=== PATIENT | female | born 1970 | race Caucasian/White ===

== ENCOUNTER 2023-01-30 09:30 | Day surgery (SDC) | payer BC ==
[~2023-01-30] VITALS: Ht 162.6 cm; Wt 95.3 kg
[~2023-01-30 09:30] MED LIST: SERT25TA PO
[2023-01-30] MEDS ORDERED: MIDAZOLAM HCL 2 MG/2 ML VIAL (VERSED) ONE (11:52)
[2023-01-30] MEDS ORDERED: LIDOCAINE/EPI 1% 1:100000 20 ML VIAL ONE (11:52)
[2023-01-30] MEDS ORDERED: NS IRRIG SOLN 1000 ML IR ONE (11:52)
[2023-01-30] MEDS ORDERED: PROPOFOL 200MG/ 20ML VIAL (DIPRIVAN) IV ONE (11:52)
[2023-01-30] MEDS ORDERED: SUGAMMADEX SODIUM 200 MG/2 ML VIAL IV ONE (11:52)
[2023-01-30] MEDS ORDERED: WATER FOR IRRIGATION,STERILE 1,000 ML IRRIG.SOLN IR ONE (11:52)
[2023-01-30] MEDS ORDERED: ROCURONIUM BROMIDE 10 MG/ML (ZEMURON) ONE (11:52)
[2023-01-30] MEDS ORDERED: MUPIROCIN 2% TOPICAL OINTMENT 22 GM ONE (11:52)
[2023-01-30] MEDS ORDERED: LIDOCAINE 2%, 20 ML MDV ONE (11:52)
[2023-01-30] MEDS ORDERED: fentaNYL CITRATE/PF 100 MCG/2 ML AMP ONE (11:52)
[2023-01-30] MEDS ORDERED: ONDANSETRON HCL 4 MG/2 ML VIAL ONE (11:52)
[2023-01-30] MEDS ORDERED: DESFLURANE 15 MIN GAS INH ONE (11:52)
[2023-01-30] MEDS ORDERED: NS 1000 ML IV.SOLN IV ONE (11:52)
[2023-01-30] MEDS ORDERED: LR 1,000 ML IV.SOLN IV ONE (11:52)
[2023-01-30] MEDS ORDERED: DEXAMETHASONE SOD PHOSPHATE 4 MG/ML VIAL ONE (11:52)
[2023-01-30] MEDS ORDERED: ACETAMINOPHEN I.V. 1000 MG 100 ML IV ONE (12:19)
[2023-01-30] MEDS ORDERED: MEPERIDINE HCL/PF 25 MG/ML DISP.SYRIN IVP PRN (12:45)
[2023-01-30] MEDS ORDERED: HYDROmorphone 1 MG/ML INJ. CARTRIDGE IVP PRN ×2 (12:45)
[2023-01-30] MEDS ORDERED: METOCLOPRAMIDE HCL 10 MG/2 ML VIAL IVP PRN (12:45)
[2023-01-30] MEDS ORDERED: LABETALOL 100 MG/ 20ML VIAL IVP PRN (12:45)
[2023-01-30] MEDS ORDERED: LR 1,000 ML IV SCH (12:45)
[2023-01-30] MEDS ORDERED: MIDAZOLAM HCL 2 MG/2 ML VIAL (VERSED) IVP PRN (12:45)
[2023-01-30] MEDS: hydrALAZINE HCL 20 MG/ML VIAL IVP PRN ×2 (14:25→14:35)
[2023-01-30 14:26] VITALS: O2SAT 96
[2023-01-30] MEDS ORDERED: hydrALAZINE HCL 20 MG/ML VIAL ONE (14:38)
[2023-01-30 19:02] VITALS: BP_SYST 134; PULSE 88; RESP 17
== END 2023-01-30 16:55 | disposition home or self-care (01) ==
LOC: SDS 09:30 → SMU 09:31 → SDS 16:55
PROVIDERS: ATTEND Otolaryngology
DX: J32.4 Chronic pansinusitis (principal); D38.5 Neoplasm of uncertain behavior of other respiratory organs; J34.2 Deviated nasal septum; H68.101 Unspecified obstruction of Eustachian tube, right ear; H90.3 Sensorineural hearing loss, bilateral; J30.1 Allergic rhinitis due to pollen; E78.00 Pure hypercholesterolemia, unspecified; E66.01 Morbid (severe) obesity due to excess calories; R22.0 Localized swelling, mass and lump, head; Z68.34 Body mass index [BMI] 34.0-34.9, adult; Z79.899 Other long term (current) drug therapy
CPT/HCPCS: 31297; 87070; 87101; 88304; 88311; 30140; 30520; J3490; J1100; J0360; J2001; J3465; J2405; J2704; J3010; J7120; J7030; C1726; J0131